=== PATIENT | male | born 1965 | race Asian ===

== ENCOUNTER 2016-05-15 08:11 | Day surgery (SDC) | payer BC, OTHER ==
[2016-05-15] VITALS (13 sets, daily range): BP systolic 121–154; BP diastolic 74–90; PULSE 78–88; RESP 11–22; Ht 168.9 cm; Wt 68.6 kg
[~2016-05-15] VITALS: Ht 168.9 cm; Wt 68.6 kg
[2016-05-15] MEDS ORDERED: COU25 PO (08:58)
[2016-05-15] MEDS ORDERED: FER325 PO (08:58)
[2016-05-15] MEDS ORDERED: LISI10TA2 PO (08:58)
[2016-05-15] MEDS ORDERED: CLOP75TA27 PO (08:58)
[2016-05-15] MEDS ORDERED: CARV6.25 PO (08:58)
[2016-05-15] MEDS ORDERED: FOLI-49 PO (08:58)
[2016-05-15] MEDS ORDERED: ATOR20TA65 PO (08:58)
[2016-05-15] MEDS ORDERED: COU5 PO (08:58)
[2016-05-15] MEDS ORDERED: FURO20TA3 PO (08:58)
[2016-05-15] MEDS ORDERED: LANT3I SC (09:02)
[2016-05-15] MEDS ORDERED: CHOL400T10 PO (09:02)
[2016-05-15] MEDS ORDERED: INSU100C SQ ×2 (09:02)
[2016-05-15] MEDS ORDERED: HYDR-2086 PO (09:02)
--- NOTE | 2016-05-15 09:11 | RADRPT ---
PROCEDURE: XR Chest. CLINICAL INDICATION: Preoperative TECHNIQUE: Single frontal chest x-ray. COMPARISON: None. FINDINGS: The lungs are clear of acute infiltrates, edema, effusions, or masses. There is a right sided tunnel ed dialysis catheter in place with tip in the superior vena cava. Left-sided dual chamber cardiac p acer in place.. The cardiomediastinal silhouette is unremarkable. The osseous structures are intact . IMPRESSION: No acute cardiopulmonary disease. Right sided tunneled dialysis catheter and left-sided cardiac pacer in place. RPTAT: VV .Daniel Mendoza MD, Date Time Electronically viewed and signed by .Daniel Mendoza MD, MD on 05/15/2016 09:11 .L/
--- NOTE | 2016-05-15 10:05 | HPN ---
Date/Time of Note Date/Time of Note DATE: 05/15/16 TIME: 10:05 Interval H&P Admission Note Pt. seen H&P reviewed: No system changes JAMIN HILL MD May 15, 2016 10:05
[2016-05-15] MEDS ORDERED: PROPOFOL 20 ML ONE (10:37)
[2016-05-15] MEDS ORDERED: LIDOCAINE 2% (SDV) 5 ML INJ ONE (10:37)
[2016-05-15] MEDS ORDERED: SUCCINYLCHOLINE CHLORIDE 100 MG/5 ML SYG IV ONE (10:42)
[2016-05-15] MEDS ORDERED: ROCURONIUM 50 MG INJ ONE (10:42)
[2016-05-15] MEDS ORDERED: HEPARIN 1000 UNITS/ML 10 ML INJ ONE (10:43)
[2016-05-15] MEDS ORDERED: GELATIN SIZE 100 SPONGE ONE (10:43)
[2016-05-15] MEDS ORDERED: THROMBIN 5000 UNIT VIAL ONE (10:43)
[2016-05-15] MEDS ORDERED: GLYCOPYRROLATE 0.4 MG INJ ONE (10:58)
[2016-05-15] MEDS ORDERED: NEOSTIGMINE 3 MG/3 ML SYRINGE ONE (10:58)
[2016-05-15] MEDS ORDERED: CEFAZOLIN 1 GM INJ ONE (11:12)
[2016-05-15] MEDS ORDERED: LIDOCAINE 1% (STERILE-PAK) 30 ML INJ ONE (11:16)
--- NOTE | 2016-05-15 12:18 | OPR ---
DATE OF OPERATION: 05/15/2016 PREOPERATIVE DIAGNOSIS: End-stage renal disease. POSTOPERATIVE DIAGNOSIS: End-stage renal disease. PROCEDURE PERFORMED: Creation of left brachiocephalic AV fistula. SURGEON: Jamin Smith MD ANESTHESIA: LMA with local. ESTIMATED BLOOD LOSS: Minimal. COMPLICATIONS: There were no intraprocedural complications. INDICATIONS: This is a 51-year-old diabetic, hypertensive gentleman with end-stage renal disease, o n dialysis via [facility]. He has a left-sided AICD. He was brought in today for creation of a right arm AV fistula. I had mapped his right cephalic vein. It was a good caliber vein from the elbow all the way up to the upper arm, so we did a right brachiocephalic. DESCRIPTION OF PROCEDURE: The patient was brought to the operating room and placed on the table in the supine position. The right arm was prepped and draped in the usual sterile fashion. I began by making an incision across the antecubital crease using about 10 mL of 1% Xylocaine. I then careful ly dissected out the cephalic vein at the elbow and dissected it out a little more distally down the forearm, ligated distally with surgical clips and divided it. I then cut the connective tissue ove rlying the brachial artery pulse and then carefully dissected out the brachial artery. I clamped th e brachial artery and made an 8-mm anterior arteriotomy. I anastomosed the end of the cephalic vein to the size of the artery using 6-0 Prolene suture in a running standard vascular surgical fashion. I removed the clamps. There was a good thrill and there was good hemostasis. I closed the skin in cision in 2 layers using an inner layer of 3-0 Vicryl and an outer layer of 4-0 Monocryl subcuticula r sutures. A sterile dressing was applied. The patient was transferred to the recovery room in sta ble condition. He tolerated the procedure well, without any complications. Dictated By: JAMIN NGUYEN/MAJOR Conf#: [id number] DID#: [id number]
[2016-05-15] MEDS ORDERED: ONDANSETRON 4 MG INJ IV PRN (12:30)
[2016-05-15] MEDS ORDERED: FENTAnyl 50 MCG/ML VIAL IV PRN ×2 (12:30)
[2016-05-15] MEDS ORDERED: MEPERIDINE 25 MG INJ IV PRN (12:30)
[2016-05-15] MEDS ORDERED: DIPHENHYDRAMINE 50 MG INJ IV PRN (12:30)
[2016-05-15] MEDS ORDERED: METOCLOPRAMIDE 10 MG INJ IV PRN (12:30)
[2016-05-15] MEDS ORDERED: MIDAZOLAM 1 MG/ML 2 ML INJ IV PRN (12:30)
[2016-05-15] MEDS ORDERED: HYDROmorphONE (0.2 MG/ML) 10ML SYG IV PRN ×2 (12:30)
--- NOTE | 2016-05-16 13:35 | RADRPT ---
Vent Rate: 84 bpm RR Interval: 0 msec MS Interval: 144 msec QRS Duration: 90 msec QT Interval: 384 msec QTC Interval: 453 msec P-R-T Jennings: 61 - 56 - 42 degrees Sinus rhythm with premature supraventricular complexes Otherwise normal ECG No previous tracing available for comparison Electronically Signed By: Daniel Roe [id number]
== END 2016-05-15 14:55 | disposition home or self-care (01) ==
LOC: SDS 08:11
PROVIDERS: ATTEND Surgery Vascular Surgery
DX: I12.0 Hypertensive chronic kidney disease with stage 5 chronic kidney disease or end stage renal disease (principal); N18.6 End stage renal disease; I25.10 Atherosclerotic heart disease of native coronary artery without angina pectoris; E78.5 Hyperlipidemia, unspecified
CPT/HCPCS: 36821; 71010; 82962; 84132; 93005; C1725; J0330; J0690; J1644; J2710

== ENCOUNTER 2017-11-08 06:50 | Day surgery (SDC) | END 2017-11-08 10:54 | disposition home or self-care (01) ==